=== PATIENT | female | born 1970 | race Caucasian/White ===

== ENCOUNTER 2022-12-31 04:15 | Day surgery (SDC) | payer OTHER ==
[2022-12-29 13:56] VITALS: BMI 26.6
[2022-12-31] MEDS ORDERED: MIDAZOLAM HCL 2 MG/2 ML SINGLE DOSE VIAL ONE (14:21)
[2022-12-31] MEDS ORDERED: PROPOFOL 40 ML ONE (14:40)
[2022-12-31] MEDS ORDERED: SUCCINYLCHOLINE CHLORIDE 200 MG/10 ML SYRINGE ONE (14:41)
[2022-12-31] MEDS ORDERED: ONDANSETRON 4 MG/2 ML VIAL IVPUSH PRN (15:07)
[2022-12-31] MEDS ORDERED: IBUPROFEN 600 MG TABLET (FP) PO PRN (15:07)
[2022-12-31] MEDS ORDERED: IBUPROFEN 800 MG/8 ML IJ IVPB PRN (15:07)
[2022-12-31] MEDS ORDERED: oxyCODONE HCL 5 MG TABLET PO PRN (15:07)
[2022-12-31] MEDS ORDERED: ELECTROLYTE-148 SOLN 1,000 ML IV SCH (15:15)
[2022-12-31 16:00] VITALS: RESP 18
[2022-12-31 17:35] VITALS: BP 110/69; PULSE 78; TEMP 97.9
== END 2022-12-31 17:36 | disposition home or self-care (01) ==
LOC: JASU-SURG 04:15
PROVIDERS: ATTEND Obstetrics & Gynecology
PROC: 0UDB8ZZ Extraction of Endometrium, Via Natural or Artificial Opening Endoscopic (ICD-10-PCS; principal; 2022-12-31 14:00)
DX: N95.0 Postmenopausal bleeding (principal)
CPT/HCPCS: 88305-TC; 94760

== ENCOUNTER 2023-07-01 05:01 | Day surgery (SDC) | payer OTHER ==
[2023-06-30 14:52] VITALS: BMI 28.1
[2023-07-01] MEDS ORDERED: PROPOFOL 20 ML ONE (14:34)
[2023-07-01] MEDS ORDERED: MIDAZOLAM HCL 2 MG/2 ML SINGLE DOSE VIAL ONE (14:35)
[2023-07-01] MEDS ORDERED: ONDANSETRON 4 MG/2 ML VIAL ONE (15:12)
[2023-07-01] MEDS ORDERED: DEXAMETHASONE SOD PHOSPHATE 4 MG/1 ML VIAL ONE (15:12)
[2023-07-01] MEDS ORDERED: oxyCODONE HCL 5 MG TABLET PO PRN (15:35)
[2023-07-01] MEDS ORDERED: ACETAMINOPHEN 325 MG TABLET (FP) PO PRN (15:35)
[2023-07-01] MEDS ORDERED: ACETAMINOPHEN 1000 MG/100 ML BAG IVPB ONE (15:37)
[2023-07-01] MEDS ORDERED: ACETAMINOPHEN INJECTION 100 ML IVPB ONE (15:41)
[2023-07-01] MEDS ORDERED: LACTATED RINGERS SOLUTION 1,000 ML IV SCH (15:45)
[2023-07-01 16:44] VITALS: RESP 18
[2023-07-01 17:42] VITALS: BP 122/63; PULSE 95; TEMP 98.1
== END 2023-07-01 17:42 | disposition home or self-care (01) ==
LOC: JASU-SURG 05:01
PROVIDERS: ATTEND Obstetrics & Gynecology
PROC: 0UDB8ZZ Extraction of Endometrium, Via Natural or Artificial Opening Endoscopic (ICD-10-PCS; principal; 2023-07-01 16:00)
DX: N92.0 Excessive and frequent menstruation with regular cycle (principal); D64.9 Anemia, unspecified; N85.00 Endometrial hyperplasia, unspecified
CPT/HCPCS: 81025; 88305-TC; 94760

== ENCOUNTER 2024-06-20 04:05 | Day surgery (SDC) | payer OTHER ==
[2024-06-16 15:42] VITALS: BMI 28.1
[2024-06-20] MEDS ORDERED: ONDANSETRON 4 MG/2 ML VIAL ONE (10:46)
[2024-06-20] MEDS ORDERED: PROPOFOL 20 ML ONE (10:46)
[2024-06-20] MEDS ORDERED: DEXAMETHASONE SOD PHOSPHATE 4 MG/1 ML VIAL ONE (10:46)
[2024-06-20] MEDS ORDERED: MIDAZOLAM HCL 2 MG/2 ML SINGLE DOSE VIAL ONE (10:46)
[2024-06-20] MEDS ORDERED: oxyCODONE HCL 5 MG TABLET PO PRN ×3 (11:30→11:31)
[2024-06-20] MEDS ORDERED: IBUPROFEN 600 MG TABLET (FP) PO PRN (11:30)
[2024-06-20] MEDS ORDERED: ELECTROLYTE-148 SOLN 1,000 ML IV SCH (11:30)
[2024-06-20] MEDS ORDERED: IBUPROFEN 800 MG/8 ML IJ IVPB PRN (11:30)
[2024-06-20] MEDS ORDERED: ONDANSETRON 4 MG/2 ML VIAL IVPUSH PRN ×2 (11:30→11:31)
[2024-06-20] MEDS ORDERED: LACTATED RINGERS SOLUTION 1,000 ML IV SCH (11:45)
[2024-06-20 12:45] VITALS: RESP 18
[2024-06-20 14:40] VITALS: BP 100/63; PULSE 90; TEMP 97.5
== END 2024-06-20 14:00 | disposition home or self-care (01) ==
LOC: JASU-SURG 04:05
PROVIDERS: ATTEND Obstetrics & Gynecology
PROC: 0UDB8ZX Extraction of Endometrium, Via Natural or Artificial Opening Endoscopic, Diagnostic (ICD-10-PCS; principal; 2024-06-20 10:00)
DX: N95.0 Postmenopausal bleeding (principal)
CPT/HCPCS: 81025; 88305-TC; 88341-TC; 88342-TC; 93005; 93010; 94760